=== PATIENT | female | born 1955 | race African-American/Black ===

== ENCOUNTER 2021-11-13 12:11 | Inpatient (IN) | payer MEDICAID, OTHER ==
[~2021-11-13] VITALS: Ht 175.3 cm; Wt 81.6 kg
[~2021-11-13 12:11] MED LIST: LIDOCAINE HCL/PF 1% 2ML VIAL ONE
[2021-11-13 13:00] LABS: BG BASE EXCESS 3.3 mmol/L (-2.0-2.0); BG CARBOXYHEMOGLOBIN 1.5 % (0.5-1.5); BG DEOXYHEMOGLOBIN 4.6 % (0.0-5.0); BG HCO3 ACT 28.4 mmol/L (22.0-26.0); BG OXYGEN SATURATION 95.3 % (92.0-98.5); BG OXYHEMOGLOBIN 93.9 % (94.0-97.0); BG PCO2 46.5 mmHg (35.0-45.0); BG PH 7.403 (7.350-7.450); BG PO2 78.4 mmHg (75.0-100.0); BG SAMPLE SITE RIGHT RADIAL; BG TOTAL HEMOGLOBIN 5.4 g/dL (12.0-18.0); BG VENT MODE ROOM AIR
[2021-11-13 13:01] LABS: CHLORIDE 104 mEq/L (98-107)
[2021-11-13 13:09] LABS: MEAN CORPUSCULAR HEMOGLOBIN 17.4 pg (28.0-32.0); MEAN CORPUSCULAR VOLUME 59.4 fL (81.0-99.0); MEAN PLATELET VOLUME 6.6 fl (7.4-10.4); PLATELET 633 x1000/uL (130-400); RED BLOOD CELL COUNT 2.98 mill/uL (4.2-5.4); RED CELL DISTRIBUTION WIDTH 21.4 % (11.6-14.6)
[2021-11-13 13:12] LABS: HEMATOCRIT. 17.7 % (36.0-48.0); HEMOGLOBIN. 5.2 g/dL (12.0-16.0)
[2021-11-13 13:14] LABS: ETHANOL BLOOD < 10 mg/dL
[2021-11-13 13:35] LABS: PLATELET ESTIMATE INCREASED
[2021-11-13] MEDS ORDERED: ASPIRIN 325MG EC TABLET PO SCH (14:00)
[2021-11-13] MEDS ORDERED: FUROSEMIDE 40MG/4ML VIAL IVP SCH (14:00)
[2021-11-13 14:40] LABS: TOTAL IRON BINDING CAPACITY 256 ug/dL (250-450)
[2021-11-13] MEDS ORDERED: ONDANSETRON HCL 4MG/2ML INJ IV PRN (18:15)
[2021-11-13] MEDS ORDERED: DIPHENHYDRAMINE 50MG/ML VIAL IV PRN (18:15)
[2021-11-13] MEDS ORDERED: IPRATROPIUM/ALBUTEROL 0.5-3(2.5)MG/3ML NEB HHN PRN (18:15)
[2021-11-13] MEDS ORDERED: CEFTRIAXONE 1 G PREMIX 50 ML IV SCH (18:15)
[2021-11-13] MEDS ORDERED: NITROGLYCERIN OINT 1GM/INCH UDPKT TD ONE (18:30)
[2021-11-13] MEDS: CLONIDINE 0.1MG TABLET PO PRN (19:01)
[2021-11-13 20:00] VITALS: BP 129/66
[2021-11-13] MEDS ORDERED: AZITHROMYCIN 500 MG in DEXT 5% WATER 250 ML IV SCH (20:00)
[2021-11-13 20:30] VITALS: BP 155/66
[2021-11-13] MEDS ORDERED: DEXTROSE 50% WATER 50ML SYRINGE IV PRN (20:45)
[2021-11-13] MEDS: INSULIN LISPRO 100 UNITS/ML SUBCUT SCH (21:00)
[2021-11-13] MEDS: CEFTRIAXONE 1,000 MG in DEXTROSE 5% WATER 50 ML IV SCH (21:03)
[2021-11-13] MEDS: BLOOD SUGAR DIAGNOSTIC STRIP TEST SCH (21:13)
[2021-11-13 22:06] LABS: HEMOGLOBIN 5.7 g/dL (12.0-16.0)
[2021-11-13 22:07] LABS: HEMATOCRIT 19.8 % (36.0-48.0)
[2021-11-13 23:36] VITALS: BP 103/56
[2021-11-13 23:59] VITALS: BP 142/60
[2021-11-14] VITALS: BP 124/69
[2021-11-14] MEDS ORDERED: SITA100T11 PO (03:53)
[2021-11-14] MEDS ORDERED: GLIP5TAB12 PO (03:53)
[2021-11-14 04:00] VITALS: BP 167/69
[2021-11-14] MEDS: INSULIN LISPRO 100 UNITS/ML SUBCUT SCH ×4 (06:25→20:23)
[2021-11-14] MEDS: BLOOD SUGAR DIAGNOSTIC STRIP TEST SCH ×4 (06:25→20:23)
[2021-11-14 08:00] VITALS: BP 153/69
[2021-11-14] MEDS ORDERED: FUROSEMIDE 40MG/4ML VIAL IV SCH ×2 (09:00→17:00)
[2021-11-14 09:16] LABS: BASOPHILS % 0.3 % (0.0-2.0); EOSINOPHILS % 0.2 % (0.0-5.0); HEMATOCRIT. 22.6 % (36.0-48.0); HEMOGLOBIN. 7.1 g/dL (12.0-16.0); LYMPHOCYTES % 12.7 % (20.0-50.0); MEAN CORPUSCULAR VOLUME 67.5 fL (81.0-99.0); MEAN PLATELET VOLUME 6.4 fl (7.4-10.4); MONOCYTES % 4.7 % (2.0-8.0); NEUTROPHILS % 82.1 % (40.0-76.0); PLATELET 543 x1000/uL (130-400); RED BLOOD CELL COUNT 3.35 mill/uL (4.2-5.4)
[2021-11-14 09:20] LABS: CHLORIDE 107 mEq/L (98-107)
[2021-11-14 10:39] LABS: CREATINE KINASE 24 IU/L (26-192)
[2021-11-14 12:00] VITALS: BP 103/46
[2021-11-14] MEDS: GUAIFENESIN 600MG ER TABLET PO SCH ×2 (14:57→20:23)
[2021-11-14 16:25] LABS: CLARITY URINE CLEAR (CLEAR); COLOR URINE YELLOW (YELLOW); KETONES URINE NEGATIVE (NEGATIVE); LEUKOCYTE ESTERASE URINE NEGATIVE (NEGATIVE); NITRITE URINE NEGATIVE (NEGATIVE); OCCULT BLOOD URINE TRACE (NEGATIVE); PH URINE 5.5 (4.5-8.0); PROTEIN URINE 1+ (NEGATIVE); SPECIFIC GRAVITY URINE 1.009 (1.005-1.030); UROBILINOGEN URINE 0.2 E.U./dL (0.2-1.0)
[2021-11-14 16:37] LABS: *AMPHETAMINES SCREEN URINE NEGATIVE (NEGATIVE); *BARBITURATES SCREEN URINE NEGATIVE (NEGATIVE); *BENZODIAZEPINES SCREEN URINE NEGATIVE (NEGATIVE); *COCAINE SCREEN URINE NEGATIVE (NEGATIVE); CANNABINOID URINE SCREEN NEGATIVE (NEGATIVE); METHADONE URINE SCREEN NEGATIVE (NEGATIVE); OPIATES URINE SCREEN NEGATIVE (NEGATIVE); PHENCYCLIDINE URINE SCREEN NEGATIVE (NEGATIVE)
[2021-11-14 16:40] VITALS: BP 158/70
[2021-11-14] MEDS: IPRATROPIUM/ALBUTEROL 0.5-3(2.5)MG/3ML NEB HHN SCH ×2 (16:42→20:42)
[2021-11-14] MEDS: FUROSEMIDE 40MG/4ML VIAL IV SCH (19:17)
[2021-11-14 20:00] VITALS: BP 139/54
[2021-11-14] MEDS: AZITHROMYCIN 500 MG in DEXT 5% WATER 250 ML IV SCH (20:23)
[2021-11-14] MEDS: CEFTRIAXONE 1,000 MG in DEXTROSE 5% WATER 50 ML IV SCH (20:23)
[2021-11-15] VITALS (10 sets, daily range): BP systolic 112–152; BP diastolic 47–69
[2021-11-15] MEDS: IPRATROPIUM/ALBUTEROL 0.5-3(2.5)MG/3ML NEB HHN SCH ×4 (00:58→21:25)
[2021-11-15] MEDS: FUROSEMIDE 40MG/4ML VIAL IV SCH ×2 (05:12→18:06)
[2021-11-15 06:17] LABS: BASOPHILS % 0.2 % (0.0-2.0); EOSINOPHILS % 0.3 % (0.0-5.0); HEMATOCRIT. 19.7 % (36.0-48.0); LYMPHOCYTES % 10.8 % (20.0-50.0); MEAN CORPUSCULAR VOLUME 68.7 fL (81.0-99.0); MEAN PLATELET VOLUME 6.6 fl (7.4-10.4); MONOCYTES % 6.8 % (2.0-8.0); NEUTROPHILS % 81.9 % (40.0-76.0); PLATELET 396 x1000/uL (130-400); RED BLOOD CELL COUNT 2.87 mill/uL (4.2-5.4); RED CELL DISTRIBUTION WIDTH 30.2 % (11.6-14.6)
[2021-11-15] MEDS: BLOOD SUGAR DIAGNOSTIC STRIP TEST SCH ×4 (06:17→21:43)
[2021-11-15] MEDS: INSULIN LISPRO 100 UNITS/ML SUBCUT SCH ×4 (06:17→21:00)
[2021-11-15] MEDS ORDERED: ACETAMINOPHEN 325MG TABLET PO ONE (09:00)
[2021-11-15] MEDS ORDERED: ACETAMINOPHEN 650MG SUPP PR ONE (09:00)
[2021-11-15] MEDS ORDERED: DIPHENHYDRAMINE 25MG CAPSULE PO ONE (09:00)
[2021-11-15] MEDS ORDERED: LORATADINE 10MG TABLET PO ONE (09:00)
[2021-11-15] MEDS ORDERED: POTASSIUM CHLORIDE 20MEQ TABLET SR PO NR (10:15)
[2021-11-15] MEDS: GUAIFENESIN 600MG ER TABLET PO SCH ×2 (10:59→21:42)
[2021-11-15 17:17] LABS: HEMATOCRIT 23.8 % (36.0-48.0); HEMOGLOBIN 7.3 g/dL (12.0-16.0)
[2021-11-15] MEDS: AZITHROMYCIN 500 MG in DEXT 5% WATER 250 ML IV SCH (21:42)
[2021-11-15] MEDS: CEFTRIAXONE 1,000 MG in DEXTROSE 5% WATER 50 ML IV SCH (21:42)
[2021-11-16] VITALS: BP 121/53
[2021-11-16] MEDS: IPRATROPIUM/ALBUTEROL 0.5-3(2.5)MG/3ML NEB HHN SCH ×4 (02:00→20:34)
[2021-11-16 04:00] VITALS: BP 155/63
[2021-11-16] MEDS: FUROSEMIDE 40MG/4ML VIAL IV SCH ×2 (06:18→17:11)
[2021-11-16] MEDS: BLOOD SUGAR DIAGNOSTIC STRIP TEST SCH ×4 (06:19→20:49)
[2021-11-16] MEDS: INSULIN LISPRO 100 UNITS/ML SUBCUT SCH ×4 (07:13→20:49)
[2021-11-16 08:00] VITALS: BP 146/58
[2021-11-16] MEDS: GUAIFENESIN 600MG ER TABLET PO SCH ×2 (08:20→20:48)
[2021-11-16 12:00] VITALS: BP 127/60
[2021-11-16 16:00] VITALS: BP 155/65
[2021-11-16 17:29] LABS: HEMATOCRIT 25.5 % (36.0-48.0); HEMOGLOBIN 7.8 g/dL (12.0-16.0); MEAN CORPUSCULAR HEMOGLOBIN 21.7 pg (28.0-32.0); MEAN CORPUSCULAR VOLUME 71.2 fL (81.0-99.0); PLATELET 438 x1000/uL (130-400); RED BLOOD CELL COUNT 3.58 mill/uL (4.2-5.4); RED CELL DISTRIBUTION WIDTH 30.8 % (11.6-14.6)
[2021-11-16 17:39] LABS: INR 1.1; PROTHROMBIN TIME 11.6 sec (9.6-11.0)
[2021-11-16 20:00] VITALS: BP 131/51
[2021-11-16] MEDS: CEFTRIAXONE 1,000 MG in DEXTROSE 5% WATER 50 ML IV SCH (20:48)
[2021-11-16] MEDS: AZITHROMYCIN 500 MG in DEXT 5% WATER 250 ML IV SCH (20:49)
[2021-11-17] VITALS: BP 141/69
[2021-11-17] MEDS: IPRATROPIUM/ALBUTEROL 0.5-3(2.5)MG/3ML NEB HHN SCH ×2 (02:45→20:40)
[2021-11-17 04:00] VITALS: BP 132/59
[2021-11-17] MEDS: FUROSEMIDE 40MG/4ML VIAL IV SCH ×2 (06:20→17:00)
[2021-11-17] MEDS: INSULIN LISPRO 100 UNITS/ML SUBCUT SCH ×4 (06:20→22:01)
[2021-11-17] MEDS: BLOOD SUGAR DIAGNOSTIC STRIP TEST SCH ×4 (06:20→21:00)
[2021-11-17 07:13] LABS: BASOPHILS % 0.2 % (0.0-2.0); EOSINOPHILS % 0.7 % (0.0-5.0); HEMATOCRIT. 25.5 % (36.0-48.0); HEMOGLOBIN. 7.8 g/dL (12.0-16.0); LYMPHOCYTES % 10.3 % (20.0-50.0); MEAN CORPUSCULAR HEMOGLOBIN 21.7 pg (28.0-32.0); MEAN CORPUSCULAR VOLUME 71.3 fL (81.0-99.0); MEAN PLATELET VOLUME 6.6 fl (7.4-10.4); MONOCYTES % 7.7 % (2.0-8.0); NEUTROPHILS % 81.1 % (40.0-76.0); PLATELET 445 x1000/uL (130-400); RED BLOOD CELL COUNT 3.58 mill/uL (4.2-5.4); RED CELL DISTRIBUTION WIDTH 30.8 % (11.6-14.6)
[2021-11-17 08:00] VITALS: BP 140/56
[2021-11-17] MEDS: GUAIFENESIN 600MG ER TABLET PO SCH ×2 (08:43→22:00)
[2021-11-17] MEDS: METOLAZONE 2.5MG TABLET PO SCH (08:44)
[2021-11-17 12:00] VITALS: BP 128/57
[2021-11-17 15:47] VITALS: BP 155/73
[2021-11-17 20:00] VITALS: BP 147/62
[2021-11-17] MEDS ORDERED: AZITHROMYCIN 500 MG TABLET PO SCH (21:00)
[2021-11-17] MEDS: CEFTRIAXONE 1,000 MG in DEXTROSE 5% WATER 50 ML IV SCH (22:00)
[2021-11-18] VITALS: BP 179/73
[2021-11-18] MEDS: IPRATROPIUM/ALBUTEROL 0.5-3(2.5)MG/3ML NEB HHN SCH ×4 (01:25→21:27)
[2021-11-18 04:00] VITALS: BP 160/62
[2021-11-18] MEDS: FUROSEMIDE 40MG/4ML VIAL IV SCH ×2 (05:31→18:08)
[2021-11-18] MEDS: BLOOD SUGAR DIAGNOSTIC STRIP TEST SCH ×4 (06:28→21:00)
[2021-11-18] MEDS: INSULIN LISPRO 100 UNITS/ML SUBCUT SCH ×4 (06:29→21:00)
[2021-11-18 07:50] LABS: BASOPHILS % 0.2 % (0.0-2.0); EOSINOPHILS % 0.9 % (0.0-5.0); HEMATOCRIT. 24.9 % (36.0-48.0); HEMOGLOBIN. 7.6 g/dL (12.0-16.0); LYMPHOCYTES % 9.6 % (20.0-50.0); MEAN CORPUSCULAR HEMOGLOBIN 21.7 pg (28.0-32.0); MEAN CORPUSCULAR VOLUME 70.8 fL (81.0-99.0); MEAN PLATELET VOLUME 6.8 fl (7.4-10.4); MONOCYTES % 7.8 % (2.0-8.0); NEUTROPHILS % 81.5 % (40.0-76.0); PLATELET 409 x1000/uL (130-400); RED BLOOD CELL COUNT 3.52 mill/uL (4.2-5.4)
[2021-11-18 08:00] VITALS: BP 143/60
[2021-11-18] MEDS: METOLAZONE 2.5MG TABLET PO SCH (08:44)
[2021-11-18] MEDS: GUAIFENESIN 600MG ER TABLET PO SCH ×2 (08:44→21:11)
[2021-11-18 12:00] VITALS: BP 132/52
[2021-11-18 16:00] VITALS: BP 146/60
[2021-11-18 19:52] LABS: PLATELET ESTIMATE INCREASED
[2021-11-18 20:00] VITALS: BP 122/65
[2021-11-19] VITALS: BP 151/66
[2021-11-19] MEDS: ACETAMINOPHEN 325MG TABLET PO PRN (02:03)
[2021-11-19] MEDS: IPRATROPIUM/ALBUTEROL 0.5-3(2.5)MG/3ML NEB HHN SCH ×4 (02:35→21:30)
[2021-11-19 04:00] VITALS: BP 146/51
[2021-11-19] MEDS: FUROSEMIDE 40MG/4ML VIAL IV SCH (05:31)
[2021-11-19] MEDS: BLOOD SUGAR DIAGNOSTIC STRIP TEST SCH ×4 (06:17→20:44)
[2021-11-19] MEDS: INSULIN LISPRO 100 UNITS/ML SUBCUT SCH ×4 (06:17→20:56)
[2021-11-19 07:24] LABS: BASOPHILS % 0.3 % (0.0-2.0); HEMATOCRIT. 24.3 % (36.0-48.0); HEMOGLOBIN. 7.4 g/dL (12.0-16.0); LYMPHOCYTES % 11.7 % (20.0-50.0); MEAN CORPUSCULAR HEMOGLOBIN 21.4 pg (28.0-32.0); MEAN CORPUSCULAR VOLUME 70.6 fL (81.0-99.0); MEAN PLATELET VOLUME 6.9 fl (7.4-10.4); PLATELET 393 x1000/uL (130-400); RED BLOOD CELL COUNT 3.44 mill/uL (4.2-5.4); RED CELL DISTRIBUTION WIDTH 31.8 % (11.6-14.6)
[2021-11-19 08:00] VITALS: BP 157/63
[2021-11-19] MEDS: GUAIFENESIN 600MG ER TABLET PO SCH ×2 (08:29→20:44)
[2021-11-19] MEDS: METOLAZONE 2.5MG TABLET PO SCH (08:30)
[2021-11-19 12:00] VITALS: BP 139/70
[2021-11-19 16:00] VITALS: BP 154/69
[2021-11-19 20:00] VITALS: BP 151/64
[2021-11-20] VITALS: BP 124/49
[2021-11-20] MEDS: IPRATROPIUM/ALBUTEROL 0.5-3(2.5)MG/3ML NEB HHN SCH ×4 (01:19→20:00)
[2021-11-20 04:00] VITALS: BP 135/60
[2021-11-20] MEDS: BLOOD SUGAR DIAGNOSTIC STRIP TEST SCH ×4 (06:15→21:16)
[2021-11-20] MEDS: INSULIN LISPRO 100 UNITS/ML SUBCUT SCH ×4 (06:15→21:00)
[2021-11-20 06:46] LABS: BASOPHILS % 0.6 % (0.0-2.0); EOSINOPHILS % 1.1 % (0.0-5.0); HEMATOCRIT. 23.7 % (36.0-48.0); HEMOGLOBIN. 7.4 g/dL (12.0-16.0); LYMPHOCYTES % 10.6 % (20.0-50.0); MEAN CORPUSCULAR HEMOGLOBIN 21.7 pg (28.0-32.0); MEAN CORPUSCULAR VOLUME 69.9 fL (81.0-99.0); MEAN PLATELET VOLUME 6.6 fl (7.4-10.4); MONOCYTES % 7.7 % (2.0-8.0); PLATELET 408 x1000/uL (130-400); RED BLOOD CELL COUNT 3.39 mill/uL (4.2-5.4); RED CELL DISTRIBUTION WIDTH 31.9 % (11.6-14.6)
[2021-11-20 08:00] VITALS: BP 123/52
[2021-11-20] MEDS ORDERED: POTASSIUM CHLORIDE 20MEQ TABLET SR PO NR (09:15)
[2021-11-20] MEDS: GUAIFENESIN 600MG ER TABLET PO SCH ×2 (09:24→21:14)
[2021-11-20] MEDS: FUROSEMIDE 40MG/4ML VIAL IV SCH (09:24)
[2021-11-20] MEDS: METOLAZONE 2.5MG TABLET PO SCH (09:25)
[2021-11-20 12:00] VITALS: BP 143/55
[2021-11-20 16:00] VITALS: BP 130/66
[2021-11-20 20:00] VITALS: BP 124/66
[2021-11-21] VITALS (7 sets, daily range): BP systolic 111–147; BP diastolic 44–70
[2021-11-21] MEDS: BLOOD SUGAR DIAGNOSTIC STRIP TEST SCH ×5 (06:30→22:28)
[2021-11-21] MEDS: INSULIN LISPRO 100 UNITS/ML SUBCUT SCH ×5 (06:30→22:29)
[2021-11-21] MEDS: IPRATROPIUM/ALBUTEROL 0.5-3(2.5)MG/3ML NEB HHN SCH ×3 (07:39→22:00)
[2021-11-21 07:45] LABS: BASOPHILS % 0.4 % (0.0-2.0); EOSINOPHILS % 1.2 % (0.0-5.0); HEMATOCRIT. 23.1 % (36.0-48.0); HEMOGLOBIN. 7.3 g/dL (12.0-16.0); LYMPHOCYTES % 11.8 % (20.0-50.0); MEAN CORPUSCULAR HEMOGLOBIN 22.5 pg (28.0-32.0); MEAN CORPUSCULAR VOLUME 70.9 fL (81.0-99.0); MEAN PLATELET VOLUME 8.5 fl (7.4-10.4); MONOCYTES % 8.5 % (2.0-8.0); NEUTROPHILS % 78.1 % (40.0-76.0); PLATELET 360 x1000/uL (130-400); RED BLOOD CELL COUNT 3.26 mill/uL (4.2-5.4)
[2021-11-21] MEDS: FUROSEMIDE 40MG/4ML VIAL IV SCH (09:25)
[2021-11-21] MEDS: METOLAZONE 2.5MG TABLET PO SCH (09:25)
[2021-11-21] MEDS: GUAIFENESIN 600MG ER TABLET PO SCH ×2 (09:25→21:40)
[2021-11-22] VITALS: BP 120/70
[2021-11-22] MEDS: IPRATROPIUM/ALBUTEROL 0.5-3(2.5)MG/3ML NEB HHN SCH ×4 (02:34→20:15)
[2021-11-22 04:00] VITALS: BP 119/71
[2021-11-22 06:53] LABS: BASOPHILS % 0.9 % (0.0-2.0); EOSINOPHILS % 0.8 % (0.0-5.0); HEMATOCRIT. 23.7 % (36.0-48.0); HEMOGLOBIN. 7.4 g/dL (12.0-16.0); LYMPHOCYTES % 13.3 % (20.0-50.0); MEAN CORPUSCULAR VOLUME 70.3 fL (81.0-99.0); MEAN PLATELET VOLUME 6.8 fl (7.4-10.4); MONOCYTES % 6.3 % (2.0-8.0); NEUTROPHILS % 78.7 % (40.0-76.0); PLATELET 407 x1000/uL (130-400); RED BLOOD CELL COUNT 3.36 mill/uL (4.2-5.4); RED CELL DISTRIBUTION WIDTH 31.7 % (11.6-14.6)
[2021-11-22 08:00] VITALS: BP 165/74
[2021-11-22] MEDS: METOLAZONE 2.5MG TABLET PO SCH (08:37)
[2021-11-22] MEDS: GUAIFENESIN 600MG ER TABLET PO SCH ×2 (08:37→22:31)
[2021-11-22] MEDS: FUROSEMIDE 40MG/4ML VIAL IV SCH (08:37)
[2021-11-22] MEDS ORDERED: POTASSIUM CHLORIDE 20MEQ TABLET SR PO NR (09:15)
[2021-11-22] MEDS ORDERED: IOHEXOL-300 50 ML BOTTLE IV ONE (10:16)
[2021-11-22] MEDS ORDERED: LIDOCAINE HCL 1% 50ML VIAL (10MG/ML) ONE (10:16)
[2021-11-22] MEDS ORDERED: FENTANYL CITRATE/PF 50MCG/ML 2ML VIAL ONE (10:19)
[2021-11-22] MEDS ORDERED: LIDOCAINE HCL 1% 10 MG/ML 10ML VIAL ONE (10:19)
[2021-11-22] MEDS ORDERED: PHENYLEPHRINE HCL 10 MG/ML 1ML (IV VIAL) IV ONE (10:19)
[2021-11-22] MEDS ORDERED: PROPOFOL 200MG/20ML VIAL IV ONE (10:19)
[2021-11-22] MEDS ORDERED: ROCURONIUM BROMIDE 10MG/ML VIAL 5ML IV ONE (10:20)
[2021-11-22] MEDS ORDERED: NEOSTIGMINE METHYLSULFATE 1MG/ML 10 ML VIAL ONE (10:28)
[2021-11-22] MEDS ORDERED: GLYCOPYRROLATE 0.2 MG/ML 2ML VIAL ONE (10:28)
[2021-11-22] MEDS: BLOOD SUGAR DIAGNOSTIC STRIP TEST SCH ×3 (12:10→21:00)
[2021-11-22] MEDS: INSULIN LISPRO 100 UNITS/ML SUBCUT SCH ×3 (12:40→21:00)
[2021-11-22 16:00] VITALS: BP 103/58
[2021-11-22 20:00] VITALS: BP 123/51
[2021-11-23] VITALS: BP 132/54
[2021-11-23] MEDS: IPRATROPIUM/ALBUTEROL 0.5-3(2.5)MG/3ML NEB HHN SCH ×2 (00:57→08:06)
[2021-11-23 04:00] VITALS: BP 120/55
[2021-11-23 06:46] LABS: HEMATOCRIT. 21.5 % (36.0-48.0); MEAN CORPUSCULAR HEMOGLOBIN 21.9 pg (28.0-32.0); MEAN CORPUSCULAR VOLUME 70.7 fL (81.0-99.0); PLATELET 373 x1000/uL (130-400); RED BLOOD CELL COUNT 3.04 mill/uL (4.2-5.4); RED CELL DISTRIBUTION WIDTH 32.2 % (11.6-14.6)
[2021-11-23 07:40] LABS: HEMOGLOBIN. 6.7 g/dL (12.0-16.0)
[2021-11-23 08:00] VITALS: BP 130/49
[2021-11-23] MEDS ORDERED: IPRATROPIUM/ALBUTEROL 0.5-3(2.5)MG/3ML NEB HHN PRN ×2 (09:45→14:00)
[2021-11-23] MEDS: FUROSEMIDE 40MG/4ML VIAL IV SCH (10:29)
[2021-11-23] MEDS: METOLAZONE 2.5MG TABLET PO SCH (10:30)
[2021-11-23] MEDS: GUAIFENESIN 600MG ER TABLET PO SCH ×2 (10:31→21:31)
[2021-11-23] MEDS ORDERED: FURO20TA4 MT (12:40)
[2021-11-23 13:05] LABS: PLATELET ESTIMATE NORMAL
[2021-11-23] MEDS: ACETAMINOPHEN 325MG TABLET PO PRN (17:40)
[2021-11-23 20:00] VITALS: BP 115/49
[2021-11-23] MEDS: INSULIN LISPRO 100 UNITS/ML SUBCUT SCH (21:00)
[2021-11-23] MEDS: BLOOD SUGAR DIAGNOSTIC STRIP TEST SCH (21:00)
[2021-11-24] VITALS: BP 112/43
[2021-11-24 04:00] VITALS: BP 113/52
[2021-11-24] MEDS: BLOOD SUGAR DIAGNOSTIC STRIP TEST SCH ×4 (07:10→21:05)
[2021-11-24] MEDS: INSULIN LISPRO 100 UNITS/ML SUBCUT SCH ×4 (07:40→21:00)
[2021-11-24 08:00] VITALS: BP 136/61
[2021-11-24] MEDS: METOLAZONE 2.5MG TABLET PO SCH (09:28)
[2021-11-24] MEDS: GUAIFENESIN 600MG ER TABLET PO SCH ×2 (09:29→21:00)
[2021-11-24] MEDS: FUROSEMIDE 40MG TABLET PO SCH (09:29)
[2021-11-24 10:34] LABS: BASOPHILS % 0.5 % (0.0-2.0); EOSINOPHILS % 0.4 % (0.0-5.0); HEMATOCRIT. 23.6 % (36.0-48.0); LYMPHOCYTES % 8.4 % (20.0-50.0); MEAN CORPUSCULAR HEMOGLOBIN 21.1 pg (28.0-32.0); MEAN CORPUSCULAR VOLUME 72.4 fL (81.0-99.0); MEAN PLATELET VOLUME 7.2 fl (7.4-10.4); MONOCYTES % 6.5 % (2.0-8.0); NEUTROPHILS % 84.2 % (40.0-76.0); PLATELET 371 x1000/uL (130-400); RED BLOOD CELL COUNT 3.26 mill/uL (4.2-5.4); RED CELL DISTRIBUTION WIDTH 31.7 % (11.6-14.6)
[2021-11-24 10:53] LABS: HEMOGLOBIN. 6.9 g/dL (12.0-16.0)
[2021-11-24 12:00] VITALS: BP 125/86
[2021-11-24 16:00] VITALS: BP 153/60
[2021-11-24] MEDS: ACETAMINOPHEN 325MG TABLET PO PRN (18:20)
[2021-11-24 20:00] VITALS: BP 129/53
[2021-11-24] MEDS ORDERED: EPOETIN ALFA-EPBX 4,000 UNIT/ML VIAL SUBCUT SCH (21:00)
[2021-11-25] VITALS: BP 141/60
[2021-11-25 04:00] VITALS: BP 173/74
[2021-11-25] MEDS: CLONIDINE 0.1MG TABLET PO PRN (04:26)
[2021-11-25 05:30] VITALS: BP 157/65
[2021-11-25] MEDS: BLOOD SUGAR DIAGNOSTIC STRIP TEST SCH ×2 (06:44→12:44)
[2021-11-25] MEDS: INSULIN LISPRO 100 UNITS/ML SUBCUT SCH ×2 (06:45→12:40)
[2021-11-25 07:49] LABS: BASOPHILS % 0.4 % (0.0-2.0); EOSINOPHILS % 0.5 % (0.0-5.0); MEAN CORPUSCULAR HEMOGLOBIN 21.6 pg (28.0-32.0); MEAN CORPUSCULAR VOLUME 70.5 fL (81.0-99.0); MEAN PLATELET VOLUME 7.4 fl (7.4-10.4); MONOCYTES % 8.2 % (2.0-8.0); NEUTROPHILS % 82.9 % (40.0-76.0); PLATELET 388 x1000/uL (130-400); RED CELL DISTRIBUTION WIDTH 31.7 % (11.6-14.6)
[2021-11-25 07:59] LABS: HEMOGLOBIN. 6.3 g/dL (12.0-16.0)
[2021-11-25 08:00] VITALS: BP 141/58
[2021-11-25 08:00] LABS: HEMATOCRIT. 20.5 % (36.0-48.0)
[2021-11-25] MEDS: GUAIFENESIN 600MG ER TABLET PO SCH (09:24)
[2021-11-25] MEDS: METOLAZONE 2.5MG TABLET PO SCH (09:24)
[2021-11-25] MEDS: FUROSEMIDE 40MG TABLET PO SCH (09:24)
[2021-11-25 12:00] VITALS: BP 150/64
[2021-11-25 13:52] VITALS: BP 150/64
== END 2021-11-25 16:12 | disposition home health service (06) | DRG 951 ==
LOC: ER 12:22 → 8WST 17:03 → EDBEDREQTM 17:06 → EDBEDREQ 17:06 → ENRESERV 17:38
PROVIDERS: ADMIT Internal Medicine; ATTEND Internal Medicine
PROC: 30233N1 Transfusion of Nonautologous Red Blood Cells into Peripheral Vein, Percutaneous Approach (ICD-10-PCS; principal; 2021-11-13)
PROC: 0KBN0ZZ Excision of Right Hip Muscle, Open Approach (ICD-10-PCS; 2021-11-18)
PROC: 0T903ZZ Drainage of Right Kidney, Percutaneous Approach (ICD-10-PCS; 2021-11-18)
PROC: 0T913ZZ Drainage of Left Kidney, Percutaneous Approach (ICD-10-PCS; 2021-11-18)
PROC: 0KBP0ZZ Excision of Left Hip Muscle, Open Approach (ICD-10-PCS; 2021-11-18)
PROC: 0JB70ZZ Excision of Back Subcutaneous Tissue and Fascia, Open Approach (ICD-10-PCS; 2021-11-18)
PROC: 0JBM0ZZ Excision of Left Upper Leg Subcutaneous Tissue and Fascia, Open Approach (ICD-10-PCS; 2021-11-18)
PROC: BT111ZZ Fluoroscopy of Right Kidney using Low Osmolar Contrast (ICD-10-PCS; 2021-11-18)
DX: N95.0 Postmenopausal bleeding (principal); J96.01 Acute respiratory failure with hypoxia; I21.4 Non-ST elevation (NSTEMI) myocardial infarction; I50.33 Acute on chronic diastolic (congestive) heart failure; L89.154 Pressure ulcer of sacral region, stage 4; E44.0 Moderate protein-calorie malnutrition; G82.20 Paraplegia, unspecified; D50.9 Iron deficiency anemia, unspecified; E11.22 Type 2 diabetes mellitus with diabetic chronic kidney disease; N13.30 Unspecified hydronephrosis; I13.0 Hypertensive heart and chronic kidney disease with heart failure and stage 1 through stage 4 chronic kidney disease, or unspecified chronic kidney disease; Z20.822 Contact with and (suspected) exposure to COVID-19; J91.8 Pleural effusion in other conditions classified elsewhere; N17.9 Acute kidney failure, unspecified; D25.9 Leiomyoma of uterus, unspecified; N18.9 Chronic kidney disease, unspecified; L89.890 Pressure ulcer of other site, unstageable; Z88.1 Allergy status to other antibiotic agents; Z87.09 Personal history of other diseases of the respiratory system; Z82.49 Family history of ischemic heart disease and other diseases of the circulatory system; Z86.718 Personal history of other venous thrombosis and embolism; Z82.3 Family history of stroke; Z68.26 Body mass index [BMI] 26.0-26.9, adult; Z74.01 Bed confinement status; N85.2 Hypertrophy of uterus; Z79.84 Long term (current) use of oral hypoglycemic drugs
CPT/HCPCS: 36415; 36600; 50432; 71045; 74176; 76770; 76856; 80048; 80053; 80305; 80320; 81003; 82040; 82375; 82550; 82805; 82962; 83036; 83540; 83550; 83880; 84134; 84484; 85014; 85018; 85025; 85027; 86850; 86900; 86920; 87426; 93005; 93306; 93970; 94640; 99291; C1729; C1769; C1893; J0456; J0696; J0885; J1200; J1815; J1940; J2370; J2405; J2704; J2710; J3010; J3490; J7060; P9016; Q9967; A4315; G0480

== ENCOUNTER 2022-01-02 23:28 | Inpatient (IN) | payer OTHER ==
[~2022-01-02] VITALS: Ht 170.2 cm; Wt 99.3 kg
[~2022-01-02 23:28] MED LIST changes: +FURO20TA4 MT; +GLIP5TAB12 PO; -LIDOCAINE HCL/PF 1% 2ML VIAL ONE; +SITA100T11 PO
[2022-01-03] VITALS (9 sets, daily range): BP systolic 109–133; BP diastolic 53–79
[2022-01-03 00:14] LABS: BASOPHILS % 0.5 % (0.0-2.0); HEMATOCRIT. 23.3 % (36.0-48.0); LYMPHOCYTES % 8.1 % (20.0-50.0); MEAN CORPUSCULAR HEMOGLOBIN 21.4 pg (28.0-32.0); MEAN CORPUSCULAR VOLUME 73.5 fL (81.0-99.0); MEAN PLATELET VOLUME 6.5 fl (7.4-10.4); NEUTROPHILS % 86.4 % (40.0-76.0); PLATELET 612 x1000/uL (130-400); RED BLOOD CELL COUNT 3.18 mill/uL (4.2-5.4); RED CELL DISTRIBUTION WIDTH 25.9 % (11.6-14.6)
[2022-01-03] MEDS ORDERED: FUROSEMIDE 40MG/4ML VIAL IV ONE (00:15)
[2022-01-03 00:19] LABS: HEMOGLOBIN. 6.8 g/dL (12.0-16.0)
[2022-01-03 00:21] LABS: CHLORIDE 98 mEq/L (98-107)
[2022-01-03] MEDS ORDERED: VANCOMYCIN 1G PREMIX 200 ML IV ONE (01:15)
[2022-01-03] MEDS ORDERED: PIPERACILLIN/TAZ 3.375G PREMIX 50 ML IV ONE (01:15)
[2022-01-03] MEDS ORDERED: INSULIN REGULAR (HUMULIN R) 300UNITS/3ML VIAL IV ONE (01:30)
[2022-01-03] MEDS ORDERED: SODIUM POLYSTYRENE SULFONATE 15 G/60 ML BOT PO ONE (01:30)
[2022-01-03] MEDS ORDERED: DEXTROSE 50% WATER 50ML SYRINGE IV ONE (01:30)
[2022-01-03] MEDS ORDERED: ALBUTEROL (0.083%) 2.5MG/3ML NEB HHN ONE (01:30)
[2022-01-03] MEDS ORDERED: HEPARIN 25,000 UNITS PREMIX 250 ML IV SCH ×2 (03:00→04:30)
[2022-01-03 03:25] LABS: INR 1.1; PARTIAL THROMBOPLASTIN TIME 29.9 sec (23.4-31.0); PROTHROMBIN TIME 11.7 sec (9.6-11.0)
[2022-01-03] MEDS ORDERED: HEPARIN 80 UNITS/KG BOLUS IV NR (04:30)
[2022-01-03 05:05] LABS: PLATELET ESTIMATE INCREASED
[2022-01-03] MEDS ORDERED: IPRATROPIUM/ALBUTEROL 0.5-3(2.5)MG/3ML NEB HHN PRN (08:30)
[2022-01-03] MEDS ORDERED: FUROSEMIDE 40MG/4ML VIAL IVP NR (09:30)
[2022-01-03] MEDS ORDERED: HYDROCODONE/ACETAMINOPHEN 5/325MG TABLET PO PRN (09:45)
[2022-01-03] MEDS ORDERED: ONDANSETRON HCL 4MG/2ML INJ IV PRN (09:45)
[2022-01-03] MEDS ORDERED: CLONIDINE 0.1MG TABLET PO PRN (09:45)
[2022-01-03] MEDS ORDERED: DEXTROSE 50% WATER 50ML SYRINGE IV PRN ×2 (09:45)
[2022-01-03] MEDS ORDERED: MAGNESIUM/ALUMINUM HYDROXIDE/SIMETHICONE 30ML UDC PO PRN (09:45)
[2022-01-03] MEDS ORDERED: ACETAMINOPHEN 325MG TABLET PO PRN (09:45)
[2022-01-03] MEDS ORDERED: NALOXONE HCL 0.4MG/ML VIAL IV PRN (10:00)
[2022-01-03] MEDS ORDERED: HEPARIN BOLUS PRN aPTT 37-44 IV (10:30)
[2022-01-03] MEDS ORDERED: HEPARIN BOLUS PRN aPTT <36 IV (10:30)
[2022-01-03 11:37] LABS: MEAN CORPUSCULAR HEMOGLOBIN 21.4 pg (28.0-32.0); MEAN CORPUSCULAR VOLUME 71.2 fL (81.0-99.0); MEAN PLATELET VOLUME 6.5 fl (7.4-10.4); PLATELET 503 x1000/uL (130-400); RED BLOOD CELL COUNT 2.93 mill/uL (4.2-5.4); RED CELL DISTRIBUTION WIDTH 25.2 % (11.6-14.6)
[2022-01-03 11:41] LABS: HEMATOCRIT. 20.8 % (36.0-48.0); HEMOGLOBIN. 6.3 g/dL (12.0-16.0)
[2022-01-03] MEDS ORDERED: VANCOMYCIN 500MG PREMIX 100 ML IV NR (12:00)
[2022-01-03 12:05] LABS: CHLORIDE 99 mEq/L (98-107)
[2022-01-03 12:31] LABS: PHOSPHORUS 4.7 mg/dL (2.5-4.9)
[2022-01-03 12:33] LABS: CREATINE KINASE 25 IU/L (26-192)
[2022-01-03] MEDS: PANTOPRAZOLE SODIUM 40 MG/VIAL IV SCH ×2 (12:46→21:08)
[2022-01-03] MEDS: BLOOD SUGAR DIAGNOSTIC STRIP TEST SCH ×3 (12:47→21:08)
[2022-01-03] MEDS: PIPERACILLIN/TAZOBACTAM 3.375 G in DEXTROSE 5% WATER 50 ML IV SCH ×2 (12:47→21:11)
[2022-01-03 12:51] LABS: PLATELET ESTIMATE INCREASED
[2022-01-03] MEDS: INSULIN LISPRO 100 UNITS/ML SUBCUT SCH ×3 (13:00→21:00)
[2022-01-03] MEDS: IPRATROPIUM/ALBUTEROL 0.5-3(2.5)MG/3ML NEB HHN SCH ×2 (13:17→20:57)
[2022-01-03 15:06] LABS: TOTAL IRON BINDING CAPACITY 145 ug/dL (250-450)
[2022-01-03 15:25] LABS: FERRITIN 201 ng/mL (10-291)
[2022-01-03 16:37] LABS: CLARITY URINE TURBID (CLEAR); COLOR URINE YELLOW (YELLOW); KETONES URINE NEGATIVE (NEGATIVE); LEUKOCYTE ESTERASE URINE 3+ (NEGATIVE); NITRITE URINE NEGATIVE (NEGATIVE); OCCULT BLOOD URINE 2+ (NEGATIVE); PROTEIN URINE 3+ (NEGATIVE); SPECIFIC GRAVITY URINE 1.014 (1.005-1.030); UROBILINOGEN URINE 0.2 E.U./dL (0.2-1.0)
[2022-01-03 17:43] LABS: *AMPHETAMINES SCREEN URINE NEGATIVE (NEGATIVE); *BARBITURATES SCREEN URINE NEGATIVE (NEGATIVE); *BENZODIAZEPINES SCREEN URINE NEGATIVE (NEGATIVE); *COCAINE SCREEN URINE NEGATIVE (NEGATIVE); CANNABINOID URINE SCREEN NEGATIVE (NEGATIVE); METHADONE URINE SCREEN NEGATIVE (NEGATIVE); OPIATES URINE SCREEN NEGATIVE (NEGATIVE); PHENCYCLIDINE URINE SCREEN NEGATIVE (NEGATIVE)
[2022-01-03 19:04] LABS: FOLIC ACID (FOLATE) SERUM > 20.00 ng/mL (>5.38)
[2022-01-03] MEDS: AZITHROMYCIN 500 MG in DEXT 5% WATER 250 ML IV SCH (21:23)
[2022-01-04] VITALS (17 sets, daily range): BP systolic 113–152; BP diastolic 56–80
[2022-01-04] MEDS: IPRATROPIUM/ALBUTEROL 0.5-3(2.5)MG/3ML NEB HHN SCH ×4 (01:07→20:30)
[2022-01-04 06:47] LABS: BASOPHILS % 0.2 % (0.0-2.0); EOSINOPHILS % 0.5 % (0.0-5.0); HEMATOCRIT. 24.3 % (36.0-48.0); HEMOGLOBIN. 7.8 g/dL (12.0-16.0); LYMPHOCYTES % 7.4 % (20.0-50.0); MEAN CORPUSCULAR HEMOGLOBIN 23.9 pg (28.0-32.0); MEAN CORPUSCULAR VOLUME 74.4 fL (81.0-99.0); MEAN PLATELET VOLUME 7.1 fl (7.4-10.4); MONOCYTES % 7.1 % (2.0-8.0); NEUTROPHILS % 84.8 % (40.0-76.0); PLATELET 462 x1000/uL (130-400); RED BLOOD CELL COUNT 3.26 mill/uL (4.2-5.4); RED CELL DISTRIBUTION WIDTH 24.6 % (11.6-14.6)
[2022-01-04 06:50] LABS: CHLORIDE 100 mEq/L (98-107)
[2022-01-04 07:18] LABS: HDL CHOLESTEROL 24 mg/dL (40-59); LDL CHOLESTEROL 58 mg/dL (5-100); PHOSPHORUS 4.7 mg/dL (2.5-4.9); T4 FREE 1.04 ng/dL (0.76-1.46)
[2022-01-04] MEDS: INSULIN LISPRO 100 UNITS/ML SUBCUT SCH ×4 (08:00→20:08)
[2022-01-04] MEDS ORDERED: HEPARIN 25,000 UNITS PREMIX 250 ML IV SCH ×2 (08:15→09:30)
[2022-01-04] MEDS: BLOOD SUGAR DIAGNOSTIC STRIP TEST SCH ×4 (08:17→20:08)
[2022-01-04] MEDS: PIPERACILLIN/TAZOBACTAM 3.375 G in DEXTROSE 5% WATER 50 ML IV SCH ×2 (08:19→20:13)
[2022-01-04] MEDS: PANTOPRAZOLE SODIUM 40 MG/VIAL IV SCH ×2 (08:19→20:14)
[2022-01-04] MEDS ORDERED: HEPARIN BOLUS PRN aPTT 37-44 IV (09:00)
[2022-01-04] MEDS ORDERED: FUROSEMIDE 40MG/4ML VIAL IVP SCH (09:00)
[2022-01-04 09:18] LABS: BG BASE EXCESS -2.2 mmol/L (-2.0-2.0); BG CARBOXYHEMOGLOBIN 0.3 % (0.5-1.5); BG DEOXYHEMOGLOBIN 6.6 % (0.0-5.0); BG FRACTION INSPIRED OXYGEN 21; BG HCO3 ACT 23.4 mmol/L (22.0-26.0); BG OXYGEN SATURATION 93.4 % (92.0-98.5); BG OXYHEMOGLOBIN 93.1 % (94.0-97.0); BG PH 7.344 (7.350-7.450); BG PO2 67.2 mmHg (75.0-100.0); BG SAMPLE SITE RIGHT RADIAL; BG TOTAL HEMOGLOBIN 8.8 g/dL (12.0-18.0); BG VENT MODE ROOM AIR
[2022-01-04] MEDS ORDERED: HEPARIN 80 UNITS/KG BOLUS IV NR (10:00)
[2022-01-04 11:12] LABS: HEMATOCRIT 25.7 % (36.0-48.0); HEMOGLOBIN 7.9 g/dL (12.0-16.0); MEAN CORPUSCULAR HEMOGLOBIN 23.1 pg (28.0-32.0); MEAN CORPUSCULAR VOLUME 75.1 fL (81.0-99.0); PLATELET 519 x1000/uL (130-400); RED BLOOD CELL COUNT 3.42 mill/uL (4.2-5.4); RED CELL DISTRIBUTION WIDTH 24.5 % (11.6-14.6)
[2022-01-04] MEDS ORDERED: LIDOCAINE HCL/PF 1% 10 MG/ML 5ML VIAL ONE (12:25)
[2022-01-04] MEDS ORDERED: IOHEXOL-300 100 ML BOTTLE ONE (12:26)
[2022-01-04] MEDS ORDERED: HEPARIN BOLUS PRN aPTT <36 IV (14:00)
[2022-01-04] MEDS: FERROUS SULFATE 325MG TABLET PO SCH (14:53)
[2022-01-04 16:45] LABS: HEMATOCRIT 26.9 % (36.0-48.0); HEMOGLOBIN 8.3 g/dL (12.0-16.0); MEAN CORPUSCULAR HEMOGLOBIN 23.7 pg (28.0-32.0); MEAN CORPUSCULAR VOLUME 76.6 fL (81.0-99.0); PLATELET 502 x1000/uL (130-400); RED BLOOD CELL COUNT 3.51 mill/uL (4.2-5.4); RED CELL DISTRIBUTION WIDTH 25.1 % (11.6-14.6)
[2022-01-04] MEDS: FUROSEMIDE 40MG/4ML VIAL IVP SCH (17:43)
[2022-01-04] MEDS: AZITHROMYCIN 500 MG in DEXT 5% WATER 250 ML IV SCH (20:14)
[2022-01-05] VITALS (12 sets, daily range): BP systolic 116–157; BP diastolic 38–81
[2022-01-05 04:28] LABS: HEMATOCRIT. 25.9 % (36.0-48.0); HEMOGLOBIN. 8.1 g/dL (12.0-16.0); MEAN CORPUSCULAR HEMOGLOBIN 23.7 pg (28.0-32.0); MEAN CORPUSCULAR VOLUME 75.6 fL (81.0-99.0); MEAN PLATELET VOLUME 6.7 fl (7.4-10.4); PLATELET 498 x1000/uL (130-400); RED BLOOD CELL COUNT 3.42 mill/uL (4.2-5.4); RED CELL DISTRIBUTION WIDTH 25.4 % (11.6-14.6)
[2022-01-05] MEDS: INSULIN LISPRO 100 UNITS/ML SUBCUT SCH ×4 (07:25→21:00)
[2022-01-05] MEDS: BLOOD SUGAR DIAGNOSTIC STRIP TEST SCH ×4 (07:25→21:19)
[2022-01-05] MEDS: PANTOPRAZOLE SODIUM 40 MG/VIAL IV SCH ×2 (08:03→21:00)
[2022-01-05] MEDS: PIPERACILLIN/TAZOBACTAM 3.375 G in DEXTROSE 5% WATER 50 ML IV SCH ×2 (08:03→21:00)
[2022-01-05] MEDS: FUROSEMIDE 40MG/4ML VIAL IVP SCH ×2 (08:03→16:51)
[2022-01-05] MEDS: FERROUS SULFATE 325MG TABLET PO SCH (08:03)
[2022-01-05] MEDS: IPRATROPIUM/ALBUTEROL 0.5-3(2.5)MG/3ML NEB HHN SCH ×4 (08:49→21:11)
[2022-01-05 11:06] LABS: NUCLEATED RED BLOOD CELLS 1 /100 WBC; PLATELET ESTIMATE INCREASED
[2022-01-05] MEDS: AZITHROMYCIN 500 MG in DEXT 5% WATER 250 ML IV SCH (21:00)
[2022-01-06] VITALS (12 sets, daily range): BP systolic 122–152; BP diastolic 57–78
[2022-01-06] MEDS: IPRATROPIUM/ALBUTEROL 0.5-3(2.5)MG/3ML NEB HHN SCH ×3 (01:30→21:13)
[2022-01-06 06:05] LABS: BASOPHILS % 0.2 % (0.0-2.0); EOSINOPHILS % 0.2 % (0.0-5.0); HEMATOCRIT. 27.7 % (36.0-48.0); HEMOGLOBIN. 8.7 g/dL (12.0-16.0); LYMPHOCYTES % 8.3 % (20.0-50.0); MEAN CORPUSCULAR HEMOGLOBIN 23.5 pg (28.0-32.0); MEAN CORPUSCULAR VOLUME 74.6 fL (81.0-99.0); MEAN PLATELET VOLUME 7.4 fl (7.4-10.4); MONOCYTES % 3.5 % (2.0-8.0); NEUTROPHILS % 87.8 % (40.0-76.0); PLATELET 432 x1000/uL (130-400); RED BLOOD CELL COUNT 3.71 mill/uL (4.2-5.4); RED CELL DISTRIBUTION WIDTH 25.7 % (11.6-14.6)
[2022-01-06] MEDS: BLOOD SUGAR DIAGNOSTIC STRIP TEST SCH ×4 (07:30→21:00)
[2022-01-06] MEDS: INSULIN LISPRO 100 UNITS/ML SUBCUT SCH ×4 (08:00→21:00)
[2022-01-06] MEDS: PIPERACILLIN/TAZOBACTAM 3.375 G in DEXTROSE 5% WATER 50 ML IV SCH ×2 (09:06→20:52)
[2022-01-06] MEDS: PANTOPRAZOLE SODIUM 40 MG/VIAL IV SCH ×2 (09:06→20:52)
[2022-01-06] MEDS: FERROUS SULFATE 325MG TABLET PO SCH (09:09)
[2022-01-06] MEDS: FOLIC ACID/VITAMIN B COMP W-C TABLET PO SCH (09:09)
[2022-01-06] MEDS: FUROSEMIDE 40MG/4ML VIAL IVP SCH ×2 (09:13→17:25)
[2022-01-06] MEDS: AZITHROMYCIN 500 MG in DEXT 5% WATER 250 ML IV SCH (20:52)
[2022-01-07] VITALS (10 sets, daily range): BP systolic 107–143; BP diastolic 47–72
[2022-01-07] MEDS: IPRATROPIUM/ALBUTEROL 0.5-3(2.5)MG/3ML NEB HHN SCH ×3 (01:09→20:34)
[2022-01-07] MEDS: SODIUM POLYSTYRENE SULFONATE 15 G/60 ML BOT PO NR (08:00)
[2022-01-07] MEDS: INSULIN LISPRO 100 UNITS/ML SUBCUT SCH ×3 (08:00→21:00)
[2022-01-07 08:08] LABS: MEAN CORPUSCULAR HEMOGLOBIN 23.6 pg (28.0-32.0); MEAN CORPUSCULAR VOLUME 75.7 fL (81.0-99.0); MEAN PLATELET VOLUME 7.5 fl (7.4-10.4); PLATELET 426 x1000/uL (130-400); RED BLOOD CELL COUNT 3.83 mill/uL (4.2-5.4); RED CELL DISTRIBUTION WIDTH 25.4 % (11.6-14.6)
[2022-01-07] MEDS: BLOOD SUGAR DIAGNOSTIC STRIP TEST SCH ×4 (08:12→21:00)
[2022-01-07] MEDS: PANTOPRAZOLE SODIUM 40 MG/VIAL IV SCH ×2 (09:00→22:16)
[2022-01-07] MEDS: FERROUS SULFATE 325MG TABLET PO SCH (09:00)
[2022-01-07] MEDS: PIPERACILLIN/TAZOBACTAM 3.375 G in DEXTROSE 5% WATER 50 ML IV SCH (09:00)
[2022-01-07] MEDS: METOLAZONE 5MG TABLET PO SCH (09:00)
[2022-01-07] MEDS: FOLIC ACID/VITAMIN B COMP W-C TABLET PO SCH (09:00)
[2022-01-07] MEDS: FUROSEMIDE 40MG/4ML VIAL IVP SCH ×2 (09:00→17:15)
[2022-01-07] MEDS ORDERED: LIDOCAINE HCL 1% 20ML VIAL (Pyxis) INJ ONE (09:28)
[2022-01-07] MEDS ORDERED: IOHEXOL-300 50 ML BOTTLE IV ONE ×2 (09:29→11:36)
[2022-01-07] MEDS ORDERED: LIDOCAINE HCL 1% 50ML VIAL (10MG/ML) ONE (10:08)
[2022-01-07] MEDS ORDERED: FENTANYL CITRATE/PF 50MCG/ML 2ML VIAL ONE (10:08)
[2022-01-07] MEDS ORDERED: PROPOFOL 200MG/20ML VIAL IV ONE (10:49)
[2022-01-07] MEDS ORDERED: ONDANSETRON HCL 4MG/2ML INJ IV PRN (12:30)
[2022-01-07] MEDS: MEROPENEM 1,000 MG in SODIUM CHLORIDE 0.9% 100 ML IV SCH (17:15)
[2022-01-07] MEDS: AZITHROMYCIN 500 MG in DEXT 5% WATER 250 ML IV SCH (22:16)
[2022-01-07] MEDS: ATORVASTATIN CALCIUM 40MG TABLET PO SCH (22:17)
[2022-01-08] VITALS (12 sets, daily range): BP systolic 115–139; BP diastolic 35–67
[2022-01-08] MEDS: IPRATROPIUM/ALBUTEROL 0.5-3(2.5)MG/3ML NEB HHN SCH ×4 (02:40→20:20)
[2022-01-08] MEDS: MEROPENEM 1,000 MG in SODIUM CHLORIDE 0.9% 100 ML IV SCH ×2 (06:46→18:01)
[2022-01-08] MEDS: BLOOD SUGAR DIAGNOSTIC STRIP TEST SCH ×4 (07:11→21:00)
[2022-01-08] MEDS: INSULIN LISPRO 100 UNITS/ML SUBCUT SCH ×4 (08:00→21:00)
[2022-01-08] MEDS: FERROUS SULFATE 325MG TABLET PO SCH (09:38)
[2022-01-08] MEDS: FOLIC ACID/VITAMIN B COMP W-C TABLET PO SCH (09:38)
[2022-01-08] MEDS: PANTOPRAZOLE SODIUM 40 MG/VIAL IV SCH ×2 (09:38→23:23)
[2022-01-08] MEDS: FUROSEMIDE 40MG/4ML VIAL IVP SCH ×2 (09:38→17:00)
[2022-01-08] MEDS: METOLAZONE 5MG TABLET PO SCH (09:38)
[2022-01-08 12:53] LABS: PLATELET ESTIMATE INCREASED
[2022-01-08] MEDS: ATORVASTATIN CALCIUM 40MG TABLET PO SCH (23:23)
[2022-01-09] VITALS: BP 112/74
[2022-01-09] MEDS: IPRATROPIUM/ALBUTEROL 0.5-3(2.5)MG/3ML NEB HHN SCH ×4 (01:30→21:43)
[2022-01-09 04:00] VITALS: BP 115/51
[2022-01-09] MEDS: MEROPENEM 1,000 MG in SODIUM CHLORIDE 0.9% 100 ML IV SCH ×2 (05:12→17:47)
[2022-01-09] MEDS: BLOOD SUGAR DIAGNOSTIC STRIP TEST SCH ×4 (06:47→21:10)
[2022-01-09] MEDS: INSULIN LISPRO 100 UNITS/ML SUBCUT SCH ×4 (06:48→21:00)
[2022-01-09 08:00] VITALS: BP 121/58
[2022-01-09 08:34] LABS: HEMATOCRIT. 28.5 % (36.0-48.0); HEMOGLOBIN. 8.7 g/dL (12.0-16.0); MEAN CORPUSCULAR HEMOGLOBIN 23.7 pg (28.0-32.0); MEAN CORPUSCULAR VOLUME 77.3 fL (81.0-99.0); MEAN PLATELET VOLUME 7.3 fl (7.4-10.4); PLATELET 313 x1000/uL (130-400); RED BLOOD CELL COUNT 3.68 mill/uL (4.2-5.4); RED CELL DISTRIBUTION WIDTH 26.3 % (11.6-14.6)
[2022-01-09] MEDS: PANTOPRAZOLE SODIUM 40 MG/VIAL IV SCH ×2 (09:44→21:10)
[2022-01-09] MEDS: FUROSEMIDE 40MG/4ML VIAL IVP SCH ×3 (09:44→22:50)
[2022-01-09] MEDS: FOLIC ACID/VITAMIN B COMP W-C TABLET PO SCH (09:44)
[2022-01-09] MEDS: FERROUS SULFATE 325MG TABLET PO SCH (09:44)
[2022-01-09] MEDS: METOLAZONE 5MG TABLET PO SCH ×2 (09:44→21:10)
[2022-01-09 10:57] LABS: PLATELET ESTIMATE NORMAL
[2022-01-09 12:00] VITALS: BP_SYST 119; BP_SYST 122; BP_DIAS 56; BP_DIAS 60
[2022-01-09 16:00] VITALS: BP_SYST 117; BP_SYST 126; BP_DIAS 58; BP_DIAS 64
[2022-01-09 20:00] VITALS: BP_SYST 117; BP_SYST 92; BP_DIAS 40; BP_DIAS 64
[2022-01-09] MEDS: ATORVASTATIN CALCIUM 40MG TABLET PO SCH (21:10)
[2022-01-10] VITALS: BP 110/50
[2022-01-10] MEDS: IPRATROPIUM/ALBUTEROL 0.5-3(2.5)MG/3ML NEB HHN SCH ×4 (01:50→21:07)
[2022-01-10 04:00] VITALS: BP 117/45
[2022-01-10] MEDS: INSULIN LISPRO 100 UNITS/ML SUBCUT SCH ×4 (05:58→20:45)
[2022-01-10] MEDS: BLOOD SUGAR DIAGNOSTIC STRIP TEST SCH ×4 (05:58→20:46)
[2022-01-10] MEDS: FUROSEMIDE 40MG/4ML VIAL IVP SCH ×3 (06:05→21:45)
[2022-01-10] MEDS: METOLAZONE 5MG TABLET PO SCH ×2 (06:05→20:45)
[2022-01-10 07:25] LABS: BASOPHILS % 0.4 % (0.0-2.0); HEMATOCRIT. 27.2 % (36.0-48.0); HEMOGLOBIN. 8.3 g/dL (12.0-16.0); LYMPHOCYTES % 7.8 % (20.0-50.0); MEAN CORPUSCULAR HEMOGLOBIN 23.9 pg (28.0-32.0); MEAN CORPUSCULAR VOLUME 78.3 fL (81.0-99.0); MEAN PLATELET VOLUME 7.4 fl (7.4-10.4); MONOCYTES % 6.1 % (2.0-8.0); NEUTROPHILS % 85.7 % (40.0-76.0); PLATELET 335 x1000/uL (130-400); RED BLOOD CELL COUNT 3.47 mill/uL (4.2-5.4); RED CELL DISTRIBUTION WIDTH 26.1 % (11.6-14.6)
[2022-01-10 08:00] VITALS: BP 115/40
[2022-01-10] MEDS: PANTOPRAZOLE SODIUM 40 MG/VIAL IV SCH ×2 (08:14→20:45)
[2022-01-10] MEDS: FOLIC ACID/VITAMIN B COMP W-C TABLET PO SCH (08:14)
[2022-01-10] MEDS: FERROUS SULFATE 325MG TABLET PO SCH (08:14)
[2022-01-10 12:00] VITALS: BP 140/56
[2022-01-10 16:00] VITALS: BP 156/59
[2022-01-10] MEDS: MEROPENEM 1,000 MG in SODIUM CHLORIDE 0.9% 100 ML IV SCH (17:09)
[2022-01-10 20:00] VITALS: BP 139/56
[2022-01-10] MEDS: ATORVASTATIN CALCIUM 40MG TABLET PO SCH (20:45)
[2022-01-11] VITALS (7 sets, daily range): BP systolic 127–154; BP diastolic 54–61
[2022-01-11] MEDS: IPRATROPIUM/ALBUTEROL 0.5-3(2.5)MG/3ML NEB HHN SCH ×4 (00:25→21:05)
[2022-01-11] MEDS: BLOOD SUGAR DIAGNOSTIC STRIP TEST SCH ×4 (05:40→20:35)
[2022-01-11] MEDS: INSULIN LISPRO 100 UNITS/ML SUBCUT SCH ×4 (05:40→20:35)
[2022-01-11] MEDS: METOLAZONE 5MG TABLET PO SCH (05:53)
[2022-01-11] MEDS: FUROSEMIDE 40MG/4ML VIAL IVP SCH ×2 (05:54→13:35)
[2022-01-11 07:45] LABS: HEMATOCRIT. 26.7 % (36.0-48.0); HEMOGLOBIN. 8.1 g/dL (12.0-16.0); MEAN CORPUSCULAR HEMOGLOBIN 23.3 pg (28.0-32.0); MEAN CORPUSCULAR VOLUME 77.4 fL (81.0-99.0); MEAN PLATELET VOLUME 7.6 fl (7.4-10.4); PLATELET 331 x1000/uL (130-400); RED BLOOD CELL COUNT 3.46 mill/uL (4.2-5.4); RED CELL DISTRIBUTION WIDTH 26.8 % (11.6-14.6)
[2022-01-11] MEDS: FOLIC ACID/VITAMIN B COMP W-C TABLET PO SCH (08:43)
[2022-01-11] MEDS: FERROUS SULFATE 325MG TABLET PO SCH (08:43)
[2022-01-11] MEDS: PANTOPRAZOLE SODIUM 40 MG/VIAL IV SCH ×2 (08:44→20:36)
[2022-01-11] MEDS: DEXT 5%/0.45% NACL 1000ML 1,000 ML IV SCH (10:15)
[2022-01-11 14:38] LABS: PLATELET ESTIMATE NORMAL
[2022-01-11] MEDS: MEROPENEM 1,000 MG in SODIUM CHLORIDE 0.9% 100 ML IV SCH (17:42)
[2022-01-11] MEDS: ATORVASTATIN CALCIUM 40MG TABLET PO SCH (20:36)
[2022-01-11] MEDS ORDERED: LINEZOLID 600 MG PREMIX 300 ML IV SCH (22:15)
[2022-01-12] VITALS: BP 132/60
[2022-01-12] MEDS: DAPTOMYCIN 600 MG in SODIUM CHLORIDE 0.9% 50 ML IV SCH (00:23)
[2022-01-12] MEDS: IPRATROPIUM/ALBUTEROL 0.5-3(2.5)MG/3ML NEB HHN SCH ×4 (01:33→21:35)
[2022-01-12 04:00] VITALS: BP 145/55
[2022-01-12] MEDS: BLOOD SUGAR DIAGNOSTIC STRIP TEST SCH ×4 (05:26→22:18)
[2022-01-12] MEDS: INSULIN LISPRO 100 UNITS/ML SUBCUT SCH ×4 (05:26→22:18)
[2022-01-12 06:42] LABS: BASOPHILS % 0.1 % (0.0-2.0); EOSINOPHILS % 0.6 % (0.0-5.0); HEMATOCRIT. 26.8 % (36.0-48.0); HEMOGLOBIN. 8.2 g/dL (12.0-16.0); MEAN CORPUSCULAR HEMOGLOBIN 23.5 pg (28.0-32.0); MEAN CORPUSCULAR VOLUME 76.6 fL (81.0-99.0); MEAN PLATELET VOLUME 7.4 fl (7.4-10.4); NEUTROPHILS % 84.3 % (40.0-76.0); PLATELET 344 x1000/uL (130-400); RED CELL DISTRIBUTION WIDTH 27.3 % (11.6-14.6)
[2022-01-12 08:00] VITALS: BP 148/62
[2022-01-12] MEDS: FUROSEMIDE 100MG/10ML VIAL IVP SCH (08:56)
[2022-01-12] MEDS: FOLIC ACID/VITAMIN B COMP W-C TABLET PO SCH (08:56)
[2022-01-12] MEDS: PANTOPRAZOLE SODIUM 40 MG/VIAL IV SCH ×2 (08:56→21:05)
[2022-01-12] MEDS: SERTRALINE HCL 25MG TABLET PO SCH (08:56)
[2022-01-12] MEDS: FERROUS SULFATE 325MG TABLET PO SCH (08:56)
[2022-01-12] MEDS: DEXT 5%/0.45% NACL 1000ML 1,000 ML IV SCH (08:57)
[2022-01-12 12:00] VITALS: BP 149/59
[2022-01-12 16:00] VITALS: BP 131/56
[2022-01-12] MEDS: MEROPENEM 1,000 MG in SODIUM CHLORIDE 0.9% 100 ML IV SCH (19:16)
[2022-01-12 20:00] VITALS: BP 143/59
[2022-01-12] MEDS: ATORVASTATIN CALCIUM 40MG TABLET PO SCH (22:18)
[2022-01-13] VITALS: BP 151/64
[2022-01-13] MEDS: IPRATROPIUM/ALBUTEROL 0.5-3(2.5)MG/3ML NEB HHN SCH ×4 (01:55→21:00)
[2022-01-13 04:00] VITALS: BP_SYST 138; BP_SYST 165; BP_DIAS 65; BP_DIAS 86
[2022-01-13] MEDS: BLOOD SUGAR DIAGNOSTIC STRIP TEST SCH ×4 (07:40→22:17)
[2022-01-13 08:00] VITALS: BP 149/62
[2022-01-13] MEDS ORDERED: LIDOCAINE HCL/PF 1% 10 MG/ML 5ML VIAL ONE (08:07)
[2022-01-13] MEDS: INSULIN LISPRO 100 UNITS/ML SUBCUT SCH ×4 (08:10→22:17)
[2022-01-13] MEDS: PANTOPRAZOLE SODIUM 40 MG/VIAL IV SCH ×2 (10:24→22:19)
[2022-01-13] MEDS: FOLIC ACID/VITAMIN B COMP W-C TABLET PO SCH (10:24)
[2022-01-13] MEDS: FERROUS SULFATE 325MG TABLET PO SCH (10:24)
[2022-01-13] MEDS: SERTRALINE HCL 25MG TABLET PO SCH (10:24)
[2022-01-13] MEDS: FUROSEMIDE 100MG/10ML VIAL IVP SCH (10:24)
[2022-01-13] MEDS: DEXT 5%/0.45% NACL 1000ML 1,000 ML IV SCH (10:24)
[2022-01-13] MEDS ORDERED: SITA50TA3 MT (11:50)
[2022-01-13 12:00] VITALS: BP 138/60
[2022-01-13] MEDS ORDERED: DOXY100T2 MT (12:19)
[2022-01-13 16:00] VITALS: BP 111/52
[2022-01-13] MEDS: MEROPENEM 1,000 MG in SODIUM CHLORIDE 0.9% 100 ML IV SCH (17:25)
[2022-01-13 20:00] VITALS: BP 105/38
[2022-01-13] MEDS: ATORVASTATIN CALCIUM 40MG TABLET PO SCH (22:19)
[2022-01-14] VITALS: BP 143/60
[2022-01-14] MEDS: DAPTOMYCIN 600 MG in SODIUM CHLORIDE 0.9% 50 ML IV SCH ×2
[2022-01-14] MEDS: IPRATROPIUM/ALBUTEROL 0.5-3(2.5)MG/3ML NEB HHN SCH ×4 (01:13→14:53)
[2022-01-14 04:00] VITALS: BP 139/61
[2022-01-14] MEDS: BLOOD SUGAR DIAGNOSTIC STRIP TEST SCH ×4 (06:11→21:44)
[2022-01-14 08:00] VITALS: BP 152/66
[2022-01-14] MEDS: INSULIN LISPRO 100 UNITS/ML SUBCUT SCH ×4 (08:10→21:00)
[2022-01-14] MEDS: FOLIC ACID/VITAMIN B COMP W-C TABLET PO SCH (08:49)
[2022-01-14] MEDS: FUROSEMIDE 100MG/10ML VIAL IVP SCH (08:50)
[2022-01-14] MEDS: SERTRALINE HCL 25MG TABLET PO SCH (08:50)
[2022-01-14] MEDS: PANTOPRAZOLE SODIUM 40 MG/VIAL IV SCH ×2 (08:50→21:19)
[2022-01-14] MEDS: FERROUS SULFATE 325MG TABLET PO SCH (08:55)
[2022-01-14] MEDS: DEXT 5%/0.45% NACL 1000ML 1,000 ML IV SCH (09:08)
[2022-01-14 12:00] VITALS: BP 149/58
[2022-01-14 16:00] VITALS: BP 120/45
[2022-01-14] MEDS: MEROPENEM 1,000 MG in SODIUM CHLORIDE 0.9% 100 ML IV SCH (18:02)
[2022-01-14 20:00] VITALS: BP 128/51
[2022-01-14] MEDS: ATORVASTATIN CALCIUM 40MG TABLET PO SCH (21:19)
[2022-01-15] VITALS: BP 101/57
[2022-01-15] MEDS: IPRATROPIUM/ALBUTEROL 0.5-3(2.5)MG/3ML NEB HHN SCH ×3 (01:30→14:43)
[2022-01-15 04:00] VITALS: BP 114/51
[2022-01-15] MEDS: BLOOD SUGAR DIAGNOSTIC STRIP TEST SCH ×2 (07:34→12:40)
[2022-01-15] MEDS: INSULIN LISPRO 100 UNITS/ML SUBCUT SCH ×2 (07:35→13:10)
[2022-01-15] MEDS: SERTRALINE HCL 25MG TABLET PO SCH (09:21)
[2022-01-15] MEDS: FUROSEMIDE 100MG/10ML VIAL IVP SCH (09:21)
[2022-01-15] MEDS: FERROUS SULFATE 325MG TABLET PO SCH (09:21)
[2022-01-15] MEDS: FOLIC ACID/VITAMIN B COMP W-C TABLET PO SCH (09:21)
[2022-01-15] MEDS: PANTOPRAZOLE SODIUM 40 MG/VIAL IV SCH (09:22)
[2022-01-15 12:00] VITALS: BP 134/55
[2022-01-15 16:00] VITALS: BP 142/55
== END 2022-01-15 19:20 | disposition home health service (06) | DRG 720 ==
LOC: ER 23:30 → 5EST 01-03 02:59 → ENRESERV 01-03 06:28 → 7WST 01-08 21:55
PROVIDERS: ADMIT Internal Medicine; ATTEND Internal Medicine
PROC: 30233N1 Transfusion of Nonautologous Red Blood Cells into Peripheral Vein, Percutaneous Approach (ICD-10-PCS; 2022-01-03)
PROC: 06H03DZ Insertion of Intraluminal Device into Inferior Vena Cava, Percutaneous Approach (ICD-10-PCS; 2022-01-04)
PROC: B5191ZA Fluoroscopy of Inferior Vena Cava using Low Osmolar Contrast, Guidance (ICD-10-PCS; 2022-01-04)
PROC: 0T25X0Z Change Drainage Device in Kidney, External Approach (ICD-10-PCS; principal; 2022-01-07)
PROC: 0T25X0Z Change Drainage Device in Kidney, External Approach (ICD-10-PCS; 2022-01-07)
PROC: BT131ZZ Fluoroscopy of Bilateral Kidneys using Low Osmolar Contrast (ICD-10-PCS; 2022-01-07)
PROC: 02HV33Z Insertion of Infusion Device into Superior Vena Cava, Percutaneous Approach (ICD-10-PCS; 2022-01-13)
PROC: B548ZZA Ultrasonography of Superior Vena Cava, Guidance (ICD-10-PCS; 2022-01-13)
PROC: B518ZZA Fluoroscopy of Superior Vena Cava, Guidance (ICD-10-PCS; 2022-01-13)
DX: A41.52 Sepsis due to Pseudomonas (principal); N17.0 Acute kidney failure with tubular necrosis; J96.01 Acute respiratory failure with hypoxia; G82.50 Quadriplegia, unspecified; I50.33 Acute on chronic diastolic (congestive) heart failure; E43 Unspecified severe protein-calorie malnutrition; L89.154 Pressure ulcer of sacral region, stage 4; G82.20 Paraplegia, unspecified; R18.8 Other ascites; L89.313 Pressure ulcer of right buttock, stage 3; E11.22 Type 2 diabetes mellitus with diabetic chronic kidney disease; D50.9 Iron deficiency anemia, unspecified; I13.0 Hypertensive heart and chronic kidney disease with heart failure and stage 1 through stage 4 chronic kidney disease, or unspecified chronic kidney disease; N93.9 Abnormal uterine and vaginal bleeding, unspecified; E11.65 Type 2 diabetes mellitus with hyperglycemia; E87.5 Hyperkalemia; Z16.24 Resistance to multiple antibiotics; N18.30 Chronic kidney disease, stage 3 unspecified; E66.9 Obesity, unspecified; N13.6 Pyonephrosis; E11.69 Type 2 diabetes mellitus with other specified complication; M46.28 Osteomyelitis of vertebra, sacral and sacrococcygeal region; F43.22 Adjustment disorder with anxiety; M89.8X8 Other specified disorders of bone, other site; J18.9 Pneumonia, unspecified organism; L97.129 Non-pressure chronic ulcer of left thigh with unspecified severity; L97.119 Non-pressure chronic ulcer of right thigh with unspecified severity; I21.A1 Myocardial infarction type 2; Z20.822 Contact with and (suspected) exposure to COVID-19; N85.8 Other specified noninflammatory disorders of uterus; N95.0 Postmenopausal bleeding; I82.413 Acute embolism and thrombosis of femoral vein, bilateral; D25.9 Leiomyoma of uterus, unspecified; Z82.49 Family history of ischemic heart disease and other diseases of the circulatory system; Z88.1 Allergy status to other antibiotic agents; Z88.2 Allergy status to sulfonamides; Z79.899 Other long term (current) drug therapy; Z68.34 Body mass index [BMI] 34.0-34.9, adult
CPT/HCPCS: 36415; 36573; 36600; 37191; 50435; 71045; 76770; 78580; 80048; 80053; 80061; 80076; 80202; 80305; 81003; 82040; 82270; 82375; 82550; 82570; 82728; 82746; 82805; 82962; 83036; 83540; 83550; 83605; 83735; 83880; 84100; 84134; 84145; 84156; 84439; 84443; 84484; 85025; 85027; 86304; 86850; 86900; 86920; 87077; 87186; 87426; 93005; 93306; 93970; 94640; 99285; A6261; C1725; C1729; C1769; C1880; C1887; C9113; C9803; J0456; J0878; J1644; J1815; J1940; J2185; J2543; J2704; J3010; J3370; J3490; J7050; J7060; P9016; Q9967